=== PATIENT | male | born 1980 | race Caucasian/White ===

== ENCOUNTER 2021-05-11 13:39 | Outpatient (REF) | payer BC, SELFPAY ==
[2021-05-11 14:11] LABS: Binax Internal Control QC Valid; Binax Lot number: 9864; Binax Now Covid-19 Ag Positive (Negative)
== END 2021-05-11 13:40 | disposition home or self-care (01) ==
LOC: HO.LAB 13:39
PROVIDERS: Visit Provider Internal Medicine
DX: Z20.822 Contact with and (suspected) exposure to COVID-19 (principal)
CPT/HCPCS: C9803